=== PATIENT | female | born 1960 | race Caucasian/White ===

== ENCOUNTER → 2017-05-27 | Outpatient (CLI) | payer OTHER ==
--- NOTE | 2017-05-28 08:10 | CT ---
EXAMINATION TYPE: CT angio head DATE OF EXAM: 05/27/2017 8:08 PM COMPARISON: NONE HISTORY: Follow up Hemorrhage and coil placement CT DLP: 2111.8 mGycm Automated exposure control for dose reduction was used. TECHNIQUE: Performed without and with IV Contrast, patient injected with 100 mL of Omnipaque 300. Three-D recons tructed images are created on a independent workstation and reviewed. . FINDINGS: Noncontrast images show no acute intracranial hemorrhage or midline shift. Ventricles and sulci are w ithin normal limits in size for patient's age. Low attenuation in the periventricular white matter is present. 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 The sinuses are clear and the globes are intact bilaterally. There is dominant left vertebral artery. Vertebral arteries are patent to basilar junction. No signif icant focal stenosis or aneurysmal change is seen. There is artifact from aneurysm clip at level of b asilar tip making evaluation at this level suboptimal left P1 segment and posterior to indicating art eries are not well-visualized at this level. Visualized posterior circulation shows no aneurysmal olivia nge. Anterior circulation shows aneurysmal clip near distal right internal carotid artery before right A1 and M1 origins. On Raw data axial image 245 along the anterior margin of clip there is 3.7 mm contras t blush that I cannot identify or relate to any vessel. Residual aneurysm at this level cannot be exc luded. Patent anterior communicating artery is seen. Visualized portion of the anterior circulation o therwise shows no significant stenosis or aneurysmal change. IMPRESSION: ANEURYSM CLIP DISTAL RIGHT INTERNAL CAROTID ARTERY, EVALUATION OF THE ANTERIOR AND POSTERIOR CIRCULAT IONS AT THIS LEVEL IS SUBOPTIMAL DUE TO STREAK ARTIFACT. CANNOT RULE OUT RESIDUAL 3.7 CM ANEURYSMAL A LONG THE ANTERIOR MARGIN OF CLIP. CORRELATION WITH OLD OUTSIDE CTA OR MRA HEAD WOULD BE BENEFICIAL.
== END | disposition home or self-care (01) ==
LOC: RADCTMAIN 19:20
PROVIDERS: ATTEND Neurological Surgery
DX: I72.0 Aneurysm of carotid artery (principal); I60.9 Nontraumatic subarachnoid hemorrhage, unspecified; Z98.890 Other specified postprocedural states
CPT/HCPCS: 70496; Q9967

== ENCOUNTER → 2017-09-23 | Outpatient (CLI) | payer OTHER ==
--- NOTE | 2017-09-23 10:14 | CT ---
EXAMINATION TYPE: CT brain w con DATE OF EXAM: 09/23/2017 COMPARISON: 05/27/2017 HISTORY: Headaches and Dizziness CT DLP: 1121 mGycm Automated exposure control for dose reduction was used. CONTRAST: CT scan of the head is performed with IV Contrast, patient injected with 100 mL of Isovue 300. FINDINGS: There is no abnormal enhancing mass or midline shift identified. Aneurysm clipping is noted with the streak artifact to the right of midline. The ventricles and sulci are within normal limits in size. The globes are intact and the visualized sinuses are clear. No evidence for hemorrhage at this time. IMPRESSION: No acute intracranial process identified. Postoperative changes seen.
== END | disposition home or self-care (01) ==
LOC: RADCTMAIN 08:51
PROVIDERS: ATTEND Nurse Practitioner Family
DX: R51 Headache (principal); R42 Dizziness and giddiness; R11.0 Nausea; Z98.890 Other specified postprocedural states
CPT/HCPCS: 70460; Q9967

== ENCOUNTER → 2018-10-14 | Outpatient (CLI) | payer OTHER ==
--- NOTE | 2018-10-14 13:04 | CT ---
EXAMINATION TYPE: CT brain w con DATE OF EXAM: 10/14/2018 COMPARISON: 09/23/2017 HISTORY: short term memory loss, dizziness CT DLP: 892.1 mGycm Automated exposure control for dose reduction was used. CONTRAST: CT scan of the head is performed with IV Contrast, patient injected with 100 mL of Isovue 300. FINDINGS: Aneurysm clipping is noted with the streak artifact to the right of midline. There is no abnormal enhancing mass or midline shift identified. The ventricles and sulci are within normal limits in size. The globes are intact and the visualized sinuses are clear. IMPRESSION: No acute intracranial process or pathologic enhancement. Postoperative changes of aneurysm clipping.
--- NOTE | 2018-10-22 10:21 | P.PCN ---
Date of Procedure: 10/14/18 Preoperative Diagnosis: Palpitations Postoperative Diagnosis: Occasional APCs and moderate amount of PVCs Procedure(s) Performed: 24-hour Holter monitor Description of Procedure: Baseline EKG showed sinus rhythm. The average heart rate is 75 with minimal 51 and maximum of 1:15. Patient had all occasional to frequent PVCs, mostly single. There are rare APCs. Patient complained of of pounding more fluttering, mild to moderate pain. Patient's up and the symptoms did not correlate with any significant cardiac events. Final impression #1. Sinus rhythm. #2. Rare APCs. #3 occasional frequent PVCs #4. Patient's symptoms did not correlate with any cardiac events.
--- NOTE | 2018-10-25 14:57 | HM ---
Date of : 62 Patient Status: Clinical Attending Provider: Adele Weinstein Date: 10/22/18 10:16 Initialization Date: 10/22/18 10:16 Date of Procedure: 10/14/18 Preoperative Diagnosis: Palpitations Postoperative Diagnosis: Occasional APCs and moderate amount of PVCs Procedure(s) Performed: 24-hour Holter monitor Description of Procedure: Baseline EKG showed sinus rhythm. The average heart rate is 75 with minimal 51 and maximum of 1:15. Patient had all occasional to frequent PVCs, mostly single. There are rare APCs. Patient complained of of pounding more fluttering, mild to moderate pain. Patient's up and the symptoms did not correlate with any significant cardiac events. Final impression #1. Sinus rhythm. #2. Rare APCs. #3 occasional frequent PVCs #4. Patient's symptoms did not correlate with any cardiac events. [facility]
== END | disposition home or self-care (01) ==
LOC: RADECHMAIN 12:18
PROVIDERS: ATTEND Family Medicine
DX: R41.3 Other amnesia (principal); R42 Dizziness and giddiness; Z98.890 Other specified postprocedural states; R00.2 Palpitations; I49.3 Ventricular premature depolarization
CPT/HCPCS: 93225; 70460; Q9967